=== PATIENT | male | born 1940 | race Caucasian/White ===

== ENCOUNTER 2016-12-25 08:13 | Day surgery (SDC) | payer MEDICARE, BC ==
--- NOTE | ~2016-12-25 | EGD ---
EGD REPORT [facility] [address] [place] [address] NAME: SONNY BRITO : [birth year] STATUS : REG [facility]#: [id number] AGE: 76 ADM/REG DATE : 12/25/16 MR#: [id number] REPORT SERV DATE: 12/25/16 DICTATED BY: MONISHA LEYVA DATE: 12/25/16 REPORT STATUS : Draft TRANSCRIBED BY: [employer] DATE: 12/25/16 [facility] Patient Name: Sonny Brito Date of : 1940 Attending MD: MONISHA LEYVA MD Procedure Date No Time: 12/25/2016 Procedure: Colonoscopy Indications: High risk colon cancer surveillance: Personal history of colonic polyps Referring MD: TONY CHANDRA MD Medicines: as per anesthesia Complications: No immediate complications. Procedure: Pre-Anesthesia Assessment: - ASA Grade Assessment: III - A patient with severe systemic disease. After I obtained informed consent, the scope was passed under direct vision. Throughout the procedure, the patient's blood pressure, pulse, and oxygen saturations were monitored continuously. The PCF [id number] was introduced through the anus and advanced to the cecum, identified by appendiceal orifice and ileocecal valve. The colonoscopy was performed without difficulty. The patient tolerated the procedure. The quality of the bowel preparation was adequate to identify polyps. Findings: The perianal and digital rectal examinations were normal. Multiple small and large-mouthed diverticula were found in the sigmoid colon, in the descending colon, in the transverse colon and in the ascending colon. Internal hemorrhoids were found during endoscopy and were moderate. Impression: - Diverticulosis in the sigmoid colon, in the descending colon, in the transverse colon and in the ascending colon. - Internal hemorrhoids. Recommendation: - Continue present medications. Procedure Code(s): --- Professional --- 78495, Colonoscopy, flexible, proximal to splenic flexure; diagnostic, with or without collection of specimen(s) by brushing or washing, with or without colon decompression (separate procedure) EGD REPORT [facility] [address] [place] [address] [facility] [place] [address] NAME: SONNY BRITO : [birth year] STATUS : REG [facility]#: [id number] AGE: 76 ADM/REG DATE : 12/25/16 MR#: [id number] REPORT SERV DATE: 12/25/16 DICTATED BY: MONISHA LEYVA DATE: 12/25/16 REPORT STATUS : Draft TRANSCRIBED BY: [email or web address] DATE: 12/25/16 Diagnosis Code(s): --- Professional --- K64.8, Other hemorrhoids K57.30, Diverticulosis of large intestine without perforation or abscess without bleeding Z86.010, Personal history of colonic polyps CPT copyright 2013 [employer]. All rights reserved. The codes documented in this report are preliminary and upon truck striker review may be revised to meet current compliance requirements. MONISHA LEYVA MD 12/25/2016 10:58 AM This report has been signed electronically. Number of Addenda: 0 Note Initiated On: 12/25/2016 10:33 AM Scope Withdrawal Time 0 hours 6 minutes 42 seconds [address] [facility] [place] [address]
[~2016-12-25 08:13] MED LIST: ACTOS30 PO; ALLEGRA180 PO; AMARYL4 PO; ASA5GR PO; ASAB PO; CIP5 PO; COREG6 PO; GLUCPH PO; JANUVIA100 MG PO; MAGNESIUM PO; NITROSTAT0.4 MG SL; ONGLYZA5 MG PO; PLAVIX PO; PRIN10 PO; PROMEGA PO; PROSCAR5 PO; RAPAFLO PO; T PO; VIT D PO; ZOCOR40 PO; [UNRECOGNIZED DRUG - OTHER] PO
== END 2016-12-25 23:59 | disposition home or self-care (01) ==
LOC: DMU 08:13
PROVIDERS: Internal Medicine Gastroenterology
PROC: 0DJD8ZZ Inspection of Lower Intestinal Tract, Via Natural or Artificial Opening Endoscopic (ICD-10-PCS; principal; 2016-12-25 10:00)
DX: Z12.11 Encounter for screening for malignant neoplasm of colon (principal); K64.8 Other hemorrhoids; K57.30 Diverticulosis of large intestine without perforation or abscess without bleeding; E11.9 Type 2 diabetes mellitus without complications; I25.10 Atherosclerotic heart disease of native coronary artery without angina pectoris; Z95.5 Presence of coronary angioplasty implant and graft; Z86.010 Personal history of colon polyps; Z98.890 Other specified postprocedural states
CPT/HCPCS: 82962